=== PATIENT | female | born 1990 | race Caucasian/White ===

== ENCOUNTER 2017-03-08 14:31 | Emergency (ER) | payer OTHER ==
[~2017-03-08] VITALS: Ht 162.6 cm; Wt 120.7 kg
[~2017-03-08 14:31] MED LIST: NOHOMEMEDS
[2017-03-08] MEDS ORDERED: BACITRACIN28.4 GM TP (16:55)
[2017-03-08 17:35] VITALS: BP 144/100
== END 2017-03-08 17:35 | disposition home or self-care (01) ==
LOC: EME 14:31
DX: L98.499 Non-pressure chronic ulcer of skin of other sites with unspecified severity (principal); R03.0 Elevated blood-pressure reading, without diagnosis of hypertension
CPT/HCPCS: 99281; 99284

== ENCOUNTER 2017-04-04 20:10 | Emergency (ER) | payer OTHER ==
[~2017-04-04] VITALS: Ht 162.6 cm; Wt 117.5 kg
[~2017-04-04 20:10] MED LIST changes: +BACITRACIN28.4 GM TP
[2017-04-05] MEDS ORDERED: NYSTATIN15 GM TP (00:46)
[2017-04-05 00:54] VITALS: BP 125/94
== END 2017-04-05 00:55 | disposition home or self-care (01) ==
LOC: EME 20:10
DX: T82.838A Hemorrhage due to vascular prosthetic devices, implants and grafts, initial encounter (principal); R91.8 Other nonspecific abnormal finding of lung field; Z45.2 Encounter for adjustment and management of vascular access device
CPT/HCPCS: 71045; 99281; 99283